=== PATIENT | female | born 1985 | race Two or more races ===

== ENCOUNTER → 2022-02-27 | Outpatient (CLI) | payer OTHER | END | disposition home or self-care (01) | LOC: PRENATAL 02-22 10:30 | PROVIDERS: ATTEND Obstetrics & Gynecology Maternal & Fetal Medicine | DX: O36.80X0 Pregnancy with inconclusive fetal viability, not applicable or unspecified (principal); O09.519 Supervision of elderly primigravida, unspecified trimester; O99.280 Endocrine, nutritional and metabolic diseases complicating pregnancy, unspecified trimester; O99.891 Other specified diseases and conditions complicating pregnancy; Z3A.12 12 weeks gestation of pregnancy ==

== ENCOUNTER 2022-04-25 07:57 | Outpatient (CLI) | payer OTHER | END 2022-04-25 08:58 | disposition home or self-care (01) | LOC: PRENATAL 07:57 | PROVIDERS: ATTEND Obstetrics & Gynecology Maternal & Fetal Medicine | DX: O35.1XX1 Maternal care for (suspected) chromosomal abnormality in fetus, fetus 1 (principal); O35.1XX0 Maternal care for (suspected) chromosomal abnormality in fetus, not applicable or unspecified; O09.519 Supervision of elderly primigravida, unspecified trimester; O99.280 Endocrine, nutritional and metabolic diseases complicating pregnancy, unspecified trimester; O99.891 Other specified diseases and conditions complicating pregnancy; Z3A.20 20 weeks gestation of pregnancy ==

== ENCOUNTER 2022-08-08 14:09 | Outpatient (CLI) | payer OTHER ==
[~2022-08-08 14:09] MED LIST: LOVENOX40 MG/0.4 SUBCUTANEO; PRENATAL TABLE1 EAC1 PO; SYNTHROID75 MCG PO
== END 2022-08-08 16:03 | disposition home or self-care (01) ==
LOC: PRENATAL 14:09
PROVIDERS: ATTEND Obstetrics & Gynecology Maternal & Fetal Medicine
DX: O26.849 Uterine size-date discrepancy, unspecified trimester (principal); O36.8199 Decreased fetal movements, unspecified trimester, other fetus; Z3A.35 35 weeks gestation of pregnancy

== ENCOUNTER 2022-08-30 06:37 | Inpatient (IN) | payer OTHER ==
[~2022-08-30] VITALS: Ht 167.6 cm; Wt 74.4 kg
== END 2022-09-01 16:20 | DRG 807 ==
LOC: LDR 06:37 → OB/GYN 06:37
PROVIDERS: ADMIT Obstetrics & Gynecology; ATTEND Obstetrics & Gynecology
PROC: 10E0XZZ Delivery of Products of Conception, External Approach (ICD-10-PCS; principal; 2022-08-30)
PROC: 0UQMXZZ Repair Vulva, External Approach (ICD-10-PCS; 2022-08-30)
PROC: 4A1HXCZ Monitoring of Products of Conception, Cardiac Rate, External Approach (ICD-10-PCS; 2022-08-30)
DX: O71.82 Other specified trauma to perineum and vulva (principal); Z37.0 Single live birth; Z3A.39 39 weeks gestation of pregnancy; Z20.822 Contact with and (suspected) exposure to COVID-19